=== PATIENT | male | born 1950 | race Caucasian/White ===

== ENCOUNTER → 2024-10-11 | Outpatient (CLI) | payer MEDICARE, MEDICAID, SELFPAY ==
[2024-10-11 12:31] LABS: Hematocrit 33.4 % (40-54); Hemoglobin 10.7 g/dL (13.0-16.5); Immature Granulocytes Count 0.040 X10^3/uL (0.0-0.0); Mean Corp Hgb Conc 32.0 g/dL (32-36); Mean Corpuscular Volume 97.7 fL (80-94); Mean Platelet Vol. 9.3 fl (6.2-12.0); NRBC Flagged by Analyzer 0 % (0-5); Platelet Count 437 K/mm3 (150-450); RBC Distribution Width CV 12.7 % (11.6-14.6); RBC Distribution Width SD 45.4 fl (35.1-43.9); Red Blood Count 3.42 M/mm3 (4.6-6.2); White Blood Count 11.0 K/mm3 (4.4-11.0)
[2024-10-11 13:39] LABS: AST(SGOT) 14 U/L (<=37); Alanine Aminotransfer ALT/SGPT 11 U/L (<=46); Albumin, Serum 3.7 g/dL (3.4-4.8); Alkaline Phosphatase 74 U/L (40-129); Anion Gap 10 (5-15); BUN 18 mg/dL (4-19); BUN/Creat Ratio 13.5 RATIO (10-20); Calcium,Total 9.9 mg/dL (7.6-11.0); Carbon Dioxide 26.7 mmol/L (21.0-32.0); Chloride 102 mmol/L (98-108); Cholesterol 137 mg/dL (<=200); Globulin 4.4 g/dL (2.2-4.2); Glucose 104 mg/dL (70-99); Low Density Lipoprotein Calc. 75 mg/dL; PSA,Total- Diagnostic 2.62 ng/mL (0.00-4.00); Potassium 4.8 mmol/L (3.3-5.1); Triglycerides 82 mg/dL; Very Low Density Lipoprotein 16 mg/dL (5-40); Vitamin D,25 Hydroxy 27.3 ng/mL (30-100); cholesterol:hdl ratio screen 2.99
== END | disposition home or self-care (01) ==
LOC: BIMLAB 11:11
PROVIDERS: PCP Internal Medicine; Referring Provider Internal Medicine; Visit Provider Internal Medicine
DX: J44.9 Chronic obstructive pulmonary disease, unspecified (principal); G25.81 Restless legs syndrome; E55.9 Vitamin D deficiency, unspecified; R33.9 Retention of urine, unspecified; R53.83 Other fatigue; Z13.6 Encounter for screening for cardiovascular disorders
CPT/HCPCS: 36415; 80053; 80061; 82306; 84153; 85025

== ENCOUNTER → 2024-11-07 | Outpatient (CLI) | payer MEDICARE, MEDICAID, SELFPAY ==
--- NOTE | 2024-11-07 08:03 | CT_ITS ---
PROCEDURE: LOW DOSE CT LUNG SCREENING 11/07/2024 REASON FOR EXAM: SCREENING Current smoker. Patient has smoked half pack per day for 50+ years. COPD. TECHNIQUE: LOW DOSE CT LUNG SCREENING Coronal and Sagittal reconstruction series were provided. One or more dose reduction techniques were used (e.g., Automated exposure control, adjustment of the mA and/or kV according to patient size, use of iterative reconstruction technique). REFERENCE LINK: [employer] Lung-RADS RADIATION DOSE SUMMARY: CTDlvol: 3.02 mGy DLP: 113.25 mGycm COMPARISON: None FINDINGS: PULMONARY NODULES: (Only nodules >3mm are reported) Nodules described below are on series 1 unless otherwise specified. Pulmonary Nodules: Punctate calcified granuloma in the lateral aspect of the right upper lobe as seen on axial image number 73. Minimal scarring in the right lung apex. Hyperinflation. Mild bronchiectasis in both lower lobes. Hardware:None Lymph Nodes:None Heart and Vasculature:The heart is nonenlarged. Coronary Artery Calcifications: Absent Lungs and Airways: Hyperinflation. Pleura:No pleural effusion. Upper Abdomen:Unremarkable Bones:Degenerative changes of the thoracic spine. CT/Low Dose CT Lung Screening IMPRESSION: Hyperinflation. Mild right apical scarring. Bronchiectasis in the lower lobes . Coronary artery calcification (CAC) is is absent Lung-RADS Category: 2 BENIGN (BASED ON IMAGING FEATURES OR INDOLENT BEHAVIOR). RECOMMEND 12-MONTH SCREENING LDCT. Other Significant Findings: Reading Location: [facility]
--- NOTE | 2024-11-07 08:03 | AAAS_ITS ---
Reason For Study Reason For Study: Screening Aorta Measurements Aorta Doppler Measurements Proximal aorta measures1.85x1.75cm. in cross-sectional axis.Peak systolic flow velocities within the proximal aorta Proximal aorta measures1.87cm. in longitudinal axis. measure 97.7 cm/sec. Mid aorta measures1.94x1.74cm. in cross-sectional axis. Peak systolic flow velocities within the mid aorta measure Mid aorta measures1.73cm. in longitudinal axis. 54.2 cm/sec. Distal aorta measures1.73x1.56cm. in cross-sectional axis. Peak systolic flow velocities within the distal aorta Distal aorta measures1.53cm. in longitudinal axis. measure 77.6 cm/sec. Left Iliac Artery Left iliac artery measures 0.70x0.89 cm. in the cross-sectional axis. Left iliac artery measures 0.82 cm. in the longitudinal axis. Peak systolic velocity in the left iliac artery measures 94.1 cm/sec. Right Iliac Artery Right iliac artery measures 0.83x1.26 cm. in the cross-sectional axis. Right iliac artery measures 1.08 cm. in the longitudinal axis. Peak systolic velocity in the right iliac artery measures 128.6 cm/sec. Procedure Aorta IVC Iliac vasculature or bypass grafts 75344. Technical difficult study due to bladder size. Exam performed in department. VL/AAA Screening Interpretation Summary The dimensions of the intra-abdominal aorta appear normal, without evidence of aneurysmal dilatation. The iliac arteries also appear normal in caliber bilaterally. The intra-abdominal aorta and iliac arteries appear patent, demonstrating normal, pulsatile arterial flow and normal peak systolic velocities. Ordering Physician: Gardenia Walls Referring Physician: Gardenia Walls Performed By: Denise Simms, RVT
--- NOTE | 2024-11-07 08:03 | US_ITS ---
PROCEDURE: POST VOID RESIDUAL BLADDER 11/07/2024 REASON FOR EXAM: URINARY RETENTION TECHNIQUE: POST VOID RESIDUAL BLADDER COMPARISON: None FINDINGS: Prevoid bladder volume = 1972 cc. Postvoid bladder volume = 1460 cc. Bladder wall thickness = 0.3 cm. There is a 0.8 cm echogenic focus in the bladder base, likely bladder stone. US/Post Void Residual Bladder IMPRESSION: There is significant postvoid residual. There is a 0.8 cm echogenic focus in the bladder base, likely bladder stone. Reading Location: [facility]
== END | disposition home or self-care (01) ==
PROVIDERS: PCP Internal Medicine; Referring Provider Internal Medicine; Visit Provider Internal Medicine
DX: Z12.2 Encounter for screening for malignant neoplasm of respiratory organs (principal); F17.210 Nicotine dependence, cigarettes, uncomplicated; Z13.6 Encounter for screening for cardiovascular disorders; R33.9 Retention of urine, unspecified
CPT/HCPCS: 51702; 51798; 71271; 76706

== ENCOUNTER 2024-11-27 09:27 | Day surgery (SDC) | payer MEDICARE, MEDICAID, SELFPAY ==
[2024-11-27] VITALS (9 sets, daily range): BP systolic 92–132; BP diastolic 58–78; PULSE 68–83; RESP 12–18; TEMP 36.1–36.9; O2SAT 95–99; BMI 16.7
[2024-11-27] MEDS: Lactated Ringers 1,000 ML 15 ML IV (10:05)
--- NOTE | 2024-11-27 10:23 | PRE.ANES_ITS ---
ASA Classification* ASA Classification ASA Classification: 3 Assessment & Plan Anesthesia* Anesthesia Assessment Anesthesia Assessment: Discussed sedation and/or anesthesia options, risks, benefits, and alternatives with patient/parents/legal guardian/POA. Questions invited. The patient/parents/legal guardian/POA seems to understand and agrees to proceed with anesthesia plan. Reviewed the physical assessment, medical history, allergy history and patient home medications list prior to surgery/procedure/anesthetic and documented any changes. Performed airway and anesthesia risk assessments. Anesthesia Type Anesthesia Type: General History Source History Obtained from:: Patient, Chart and Significant Other ( and son) Anesthesia Focused Assessment* Temperature: 98.5 F Pulse Rate: 83 Blood Pressure: 132/78 Respiratory Rate: 14 Pulse Ox: 99 Oxygen Delivery Method: Room Air Airway Assessment Mouth opens: >3 cm Mallampati Score: II Teeth Condition: Dentures (Edentulous) Neck Range of motion (ROM): Full ROM Labs Anesthesia Preop lab: CBC WBC 11.0 K/mm3 (4.4-11.0) 10/11/24 11:12 10/11/24 RBC 3.42 M/mm3 (4.6-6.2) L 10/11/24 11:12 10/11/24 Hgb 10.7 g/dL (13.0-16.5) L 10/11/24 11:12 5 Hct 33.4 % (40-54) L 10/11/24 11:12 10/11/24 Plt Count 437 K/mm3 (150-450) 10/11/24 11:12 10/11/24 CHEMISTRY Potassium 4.8 mmol/L (3.3-5.1) 10/11/24 11:12 10/11/24 Sodium 139 mmol/L (133-145) 10/11/24 11:12 10/11/24 BUN 18 mg/dL (4-19) 10/11/24 11:12 10/11/24 Creatinine 1.32 mg/dL (0.70-1.20) H 10/11/24 11:12 Glucose 104 mg/dL (70-99) H 10/11/24 11:12 10/11/24 COAG Pre-Assessment Diagnosis/Proposed Procedure Planned Operative Procedure(s): Cysto,Litholapaxy,Laser Anesthesia History 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 When Was Last Pacemaker Check QUESTION #4 FULL TEXT: You/Your Family Experience fever (hyperthermia) with Anesthesia Last Oral Intake Last Oral intake: Last Oral Intake NPO since 23:59 11/27/24 09:58 Meds taken in AM with sips of Yes 11/27/24 09:58 water? Meds patient instructed to albuterol inhaler 11/27/24 09:58 take am of surgery PONV PONV - low voltage electrician: PONV - low voltage electrician Female No 11/21/24 14:12 HX of Motion Sickness No 11/21/24 14:12 HX of N/V After Surgery No 11/21/24 14:12 Non-Smoker Yes 11/21/24 14:12 Duration of Surgery greater No 11/21/24 14:12 than 60 minutes Number of Risk Factors 1 11/21/24 14:12 PONV Score Low Risk 11/21/24 14:12 Height & Weight Height & Weight: Anesthesia: Height & Weight Height 5 ft 10 in 11/27/24 09:58 Weight: 53 kg 11/27/24 09:58 Body Mass Index (BMI) 16.7 11/27/24 09:58 Respiratory Assessment Respiratory Assessment - low voltage electrician: Respiratory Tract Infection Hx - low voltage electrician Hx Respiratory Tract Infection No 11/21/24 14:12 STOP Sleep Apnea STOP Sleep Apnea - low voltage electrician: STOP Sleep Apnea - low voltage electrician Hx Hypertension No 11/21/24 14:12 Hx Sleep Apnea No 11/21/24 14:12 CPAP BIPAP Do you snore loudly (louder No 11/21/24 14:12 than talking or can be heard Do you often feel tired/ No 11/21/24 14:12 fatigued/ sleepy during daytime? Has anyone observed you stop No 11/21/24 14:12 breathing during sleep? STOP Results Negative 11/21/24 14:12 QUESTION #5 FULL TEXT : Do you snore loudly (louder than talking or can be heard through closed doors)? 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 Specify any problems Hx of Preganancy in last 3 N/A 11/21/24 14:12 Months Nurse Filling Out Transfusion VCHRISTIN 11/21/24 14:12 & Questions: Date: 11/21/24 11/21/24 14:12 Time: 14:13 11/21/24 14:12 Patient unable to answer at this time (ie. confused, unrespo /Reproduction History /Reproductive History - low voltage electrician: /Reproductive Hx- low voltage electrician Hx Now No 11/21/24 14:12 Gestational Age (in weeks): EDC: Hx Hx Para Hx Section SAB No 11/21/24 14:12 Active Medications Active Medications: Current Medications Generic Name Dose Route Start Last Admin Trade Name Freq PRN Reason Stop Dose Admin Cefazolin Sodium 2 gm/ Sodium 110 mls @ 200 mls/hr 11/27/24 11:30 Chloride IV 11/27/24 12:02 INTRAOP ONE Lactated Ringer's 1,000 mls @ 15 mls/hr 11/27/24 09:45 11/27/24 10:05 IV 15 mls/hr .Q48H FAB Administration PFSH Medical History Wears glasses Back pain Smoker Shortness of breath on exertion Restless legs syndrome COPD (chronic obstructive pulmonary disease) Back problem Arthritis Allergies Home Medications ?Medication ?Instructions ?Recorded ?Last Taken ?Type albuterol sulfate 90 mcg/actuation 2 puff inhalation Q 6H PRN 10/08/24 11/27/24 Rx aerosol inhaler (Ventolin HFA) shortness of breath or wheezing #8.5 grams Allergy/AdvReac Type Severity Reaction Status Date / Time No Known Allergies Allergy Verified 11/27/24 09:57 Family History Other Family history unknown Surgical History S/P hernia repair Social History adopted: No household members: spouse housing: house current occupational status: retired current occupation: factory work pets and animals: Yes pets and animals: dog(s) history of recent travel: No Smoking Status: Current every day smoker tobacco type: cigarettes second hand exposure: No quit status: considering quitting alcohol intake: never substance use type: does not use well-balanced diet: daily or most days caffeine: Yes Type: coffee eating out: rarely or never during the past year weight has: remained stable what type of physical activity do you participate in: other details: yard work frequency: does not exercise renuka/scientology: Muslim seatbelt use: always do you feel safe at home: Yes Review of Systems (Anesthesia) ROS Narrative System reviewed and no additional complaints, except as documented.
[2024-11-27] MEDS: Lactated Ringers 1,000 ML 1000 ML IV (11:16)
[2024-11-27] MEDS: Cefazolin 1 GM/5 ML Vial 2 GM IV (11:20)
[2024-11-27] MEDS: Lidocaine 1% (5 ml sdv) 5 ML Vial 3 ML IV (11:21)
[2024-11-27] MEDS: fentaNYL 100 MCG/2 ML Ampul IV (11:24)
--- NOTE | 2024-11-27 11:33 | DCINST_ITS ---
Discharge Instructions DC O2, CPAP, BIPAP needs Home O2 Discharge instructions: No Dressing / Incision Discharge Activity: Return to Normal Activity and May Not Drive (while taking narcotic pain medications.) Dressing / Incision Call your doctor if you observe: Fever of 101 or Higher Follow Up Care Please Follow Up With: Alf Pedraza MD When: Call [phone] for an appointment Test Results: Test results from this visit will be discussed in further detail at your follow- up appointment, if applicable. Discharge Plan Admission Primary Reason for Your Visit: cysto Attending Provider: Alf Pedraza Primary Care Provider: Gardenia Walls Instructions Print Language: [place] Discharge Orders/Prescriptions Prescriptions: No Action albuterol sulfate [Ventolin HFA] 90 mcg/actuation HFA aerosol inhaler 2 puff inhalation Q6H PRN (Reason: shortness of breath or wheezing) Qty: 8.5 1RF Referrals / Follow Up: Gardenia Walls MD [Primary Care Provider] - Alf Pedraza MD [Med Staff - Active Staff] - Disposition Disposition (needs filled in before D/C Order can be placed): Home, Self Care
--- NOTE | 2024-11-27 11:33 | PCM.OPRPT ---
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 possible bladder stone Post-Operative Diagnosis: the same Surgery/Procedure Performed: Cystoscopy service attendant cafeteria: No Type of Anesthesia: General RN Documented Start/Stop Times: Operation Date: 11/27/24 11:30 Case Time Into Pre-Op 11/27/24 09:29 Out of Pre-Op 11/27/24 11:13 Anesthesia Start 11/27/24 11:16 Into Room 11/27/24 11:16 Procedure Start 11/27/24 11:29 Procedure End 11/27/24 11:32 Procedure Start Time: 11:29 Procedure Stop Time: 11:35 Select all DRAINS/GRAFTS/IMPLANTS that apply: None Estimated Blood Loss: None Specimen collected: No Description of surgery: Patient was taken back to the operating room after smooth induction of anesthesia he was placed in dorsolithotomy position went into the bladder with a 21 Wolof rigid cystourethroscope the entire length of the urethra was normal the prostate was only slightly obstructive no major obstruction of the prostate inside the bladder the bladder was all distended had a large floppy bladder was nonfunctioning bladder he had to continue to use self intermittent catheterization there was no stone in the bladder there was a stone seen on CAT scan but he must of passed a stone again he is at a atonic floppy bladder. Has been doing self catheterization the bladder was drained patient has had it worse and he was taken back to PACU in stable condition patient will go home and he will continue with self cath. Surgical Findings: Very short length prostate extremely distended atonic bladder Complications Complications: No Admit VTE Documentation VTE Present on Admission: No VTE Mechan Device Prophylaxis: SCD's VTE Pharm Prophylaxis ordered?: No
--- NOTE | 2024-11-27 11:47 | PCM.POST.ANE ---
Anesthesia: Postop Eval I Current Vital Signs Temperature: 96.9 F Pulse Rate: 68 Blood Pressure: 99/67 Respiratory Rate: 14 Pulse Ox: 99 Oxygen Delivery Method: Room Air Assessment Airway patent: Yes Spontaneous unlabored respirations: Yes Mental status: Calm and Asleep nausea: No Vomiting: No Anesthesia Complication: No Fluid Hydration Crystalloid volume administer (ml): 400 Total IV fluid infused: 400 Progress Note Post-operative progress note: patient resting comfortably Anesthesia document: Postop Eval 1 completed: Yes
--- NOTE | 2024-11-27 13:02 | POSTOPAN2_ITS ---
Anesthesia Postop Eval I Sum Postop Eval Completion status Anesthesia document: Postop Eval 1 completed: Yes Anesthesia Postop Eval I Summary Anesthesia Postop Eval I Summary: Anesthesia Postop Eval I: Assessment Summary Airway patent Yes 11/27/24 11:48 SOLDERER DIPPER.MEDM Spontaneous unlabored Yes 11/27/24 11:48 SOLDERER DIPPER.MEDM respirations Mental status Calm,Asleep 11/27/24 11:48 SOLDERER DIPPER.MEDM nausea No 11/27/24 11:48 SOLDERER DIPPER.MEDM Vomiting No 11/27/24 11:48 SOLDERER DIPPER.MEDM Anesthesia Postop Eval I: Fluid Summary Crystalloid volume administer 400 11/27/24 11:48 SOLDERER DIPPER.MEDM (ml) Colloids volume administered ( ml) Blood Product volume administered (ml) Total IV fluid infused 400 11/27/24 11:48 SOLDERER DIPPER.MEDM Anesthesia Postop Eval I: Summary Notes Anesthesia Complication No 11/27/24 11:48 SOLDERER DIPPER.MEDM Anesthesia Complication Comment: Post-operative progress note patient resting 11/27/24 11:48 SOLDERER DIPPER.MEDM comfortably Anesthesia: Postop Eval II Evaluation Mental status: Awake and Calm Pain Level: 1 nausea: No Vomiting: No Complications Anesthesia Complication: No
--- NOTE | 2024-11-27 13:02 | PCM.POSTANE2 ---
Anesthesia Postop Eval I Sum Postop Eval Completion status Anesthesia document: Postop Eval 1 completed: Yes Anesthesia Postop Eval I Summary Anesthesia Postop Eval I Summary: Anesthesia Postop Eval I: Assessment Summary Airway patent Yes 11/27/24 11:48 OCCUPATIONAL THERAPIST ASSISTANT.MEDM Spontaneous unlabored Yes 11/27/24 11:48 OCCUPATIONAL THERAPIST ASSISTANT.MEDM respirations Mental status Calm,Asleep 11/27/24 11:48 OCCUPATIONAL THERAPIST ASSISTANT.MEDM nausea No 11/27/24 11:48 OCCUPATIONAL THERAPIST ASSISTANT.MEDM Vomiting No 11/27/24 11:48 OCCUPATIONAL THERAPIST ASSISTANT.MEDM Anesthesia Postop Eval I: Fluid Summary Crystalloid volume administer 400 11/27/24 11:48 OCCUPATIONAL THERAPIST ASSISTANT.MEDM (ml) Colloids volume administered ( ml) Blood Product volume administered (ml) Total IV fluid infused 400 11/27/24 11:48 OCCUPATIONAL THERAPIST ASSISTANT.MEDM Anesthesia Postop Eval I: Summary Notes Anesthesia Complication No 11/27/24 11:48 OCCUPATIONAL THERAPIST ASSISTANT.MEDM Anesthesia Complication Comment: Post-operative progress note patient resting 11/27/24 11:48 OCCUPATIONAL THERAPIST ASSISTANT.MEDM comfortably Anesthesia: Postop Eval II Evaluation Mental status: Awake and Calm Pain Level: 1 nausea: No Vomiting: No Complications Anesthesia Complication: No
== END 2024-11-27 12:31 | disposition home or self-care (01) ==
LOC: SDC 09:28 → AC 09:29
PROVIDERS: PCP Internal Medicine; Referring Provider Urology; Visit Provider Urology
PROC: (CPT 52000; principal; 2024-11-27 11:20)
DX: N40.1 Benign prostatic hyperplasia with lower urinary tract symptoms (principal); J44.9 Chronic obstructive pulmonary disease, unspecified; N13.8 Other obstructive and reflux uropathy; N31.2 Flaccid neuropathic bladder, not elsewhere classified; F17.200 Nicotine dependence, unspecified, uncomplicated; Z87.442 Personal history of urinary calculi; R33.8 Other retention of urine
CPT/HCPCS: 52000; 00910; J2405

== ENCOUNTER → 2025-01-31 | Outpatient (CLI) | payer MEDICARE, MEDICAID, SELFPAY ==
[2025-01-31 12:04] LABS: Hematocrit 41.5 % (40-54); Hemoglobin 12.8 g/dL (13.0-16.5); Immature Granulocytes Count 0.020 X10^3/uL (0.0-0.0); Mean Corp Hgb Conc 30.8 g/dL (32-36); Mean Corpuscular Volume 97.9 fL (80-94); Mean Platelet Vol. 9.7 fl (6.2-12.0); NRBC Flagged by Analyzer 0 % (0-5); Platelet Count 324 K/mm3 (150-450); RBC Distribution Width CV 13.8 % (11.6-14.6); RBC Distribution Width SD 49.6 fl (35.1-43.9); Red Blood Count 4.24 M/mm3 (4.6-6.2); White Blood Count 7.4 K/mm3 (4.4-11.0)
[2025-01-31 12:22] LABS: AST(SGOT) 17 U/L (<=37); Alanine Aminotransfer ALT/SGPT 9 U/L (<=46); Albumin, Serum 4.0 g/dL (3.4-4.8); Alkaline Phosphatase 78 U/L (40-129); Anion Gap 6 (5-15); BUN 18 mg/dL (4-19); BUN/Creat Ratio 15.4 RATIO (10-20); Calcium,Total 9.5 mg/dL (7.6-11.0); Carbon Dioxide 28.9 mmol/L (21.0-32.0); Chloride 101 mmol/L (98-108); Globulin 3.5 g/dL (2.2-4.2); Glucose 97 mg/dL (70-99); Potassium 4.6 mmol/L (3.3-5.1)
== END | disposition home or self-care (01) ==
LOC: LAB 11:13
PROVIDERS: PCP Internal Medicine; Referring Provider Internal Medicine; Visit Provider Internal Medicine
DX: D64.9 Anemia, unspecified (principal); R79.89 Other specified abnormal findings of blood chemistry
CPT/HCPCS: 36415; 80053; 85025

== ENCOUNTER → 2025-02-17 | Outpatient (CLI) | payer MEDICARE, MEDICAID, SELFPAY | END | disposition home or self-care (01) | LOC: PSN 10:08 | PROVIDERS: PCP Internal Medicine; Referring Provider Internal Medicine; Visit Provider Internal Medicine | DX: J44.9 Chronic obstructive pulmonary disease, unspecified (principal) | CPT/HCPCS: 94060; 94726; 94729 ==